=== PATIENT | male | born 1950 ===

== ENCOUNTER 2017-08-22 15:50 | Emergency (ER) | payer MEDICARE ==
[2017-08-22 16:31] LABS: #Eosinphils 0.1 thou/uL (0.0-0.7); #Lymphocytes 1.2 thou/uL (1.20-3.40); #Monocytes 0.2 thou/uL (0.11-0.59); #Neutrophils 1.2 thou/uL (1.40-6.50); %Basophils 0.1 % (0.0-1.0); %Eosinophils 4.3 % (0.0-10.0); %Lymphocytes 44.2 % (21.0-51.0); %Monocytes 6.5 % (0.0-10.0); %Neutrophils 44.8 % (42.0-75.0); Hemoglobin 6.3 g/dL (14.0-18.0); Mean Corpuscular HGB CONC 34.1 g/dL (32.0-36.0); Mean Corpuscular Hemoglobin 30.9 pg (27.0-31.0); Mean Corpuscular Volume 90.8 fL (78.0-98.0); Mean Platelet Volume 9.9 fL (7.4-10.4); Platelet Count 51 thou/uL (130-400); RBC Distribution Width 14.7 % (11.5-14.5); Red Blood Cell (RBC) Count 2.04 mill/uL (4.70-6.10); White Blood Cell (WBC) Count 2.6 thou/uL (4.8-10.8)
[2017-08-22 16:51] LABS: ALT (SGPT) 8 U/L (8-55); AST (SGOT) 12 U/L (5-34); Albumin 2.4 g/dL (3.4-4.8); Alkaline Phosphatase 50 U/L (40-150); Anion Gap 9 mmol/L (10-20); BUN (Urea Nitrogen) 8 mg/dL (8.4-25.7); Bilirubin, Total 0.6 mg/dL (0.2-1.2); Calc. Creatinine Clearance 0 mL/min (70-130); Carbon Dioxide 27 mmol/L (23-31); Chloride 104 mmol/L (98-107); Estimated GFR-MDRD Greater than 90; Globulin 4.1 g/dL (2.4-3.5); Glucose 92 mg/dL (80-115); Potassium 3.2 mmol/L (3.5-5.1); Protein, Total 6.5 g/dL (5.8-8.1); Sodium 137 mmol/L (136-145)
[2017-08-22 16:55] LABS: CKMB 0.6 ng/mL (0-6.6); Troponin I Less than 0.010 ng/mL (< 0.028)
--- NOTE | 2017-08-22 16:57 | RAD ---
SINGLE VIEW CHEST: Date: 08/22/17 COMPARISON: 03/24/17. HISTORY: Chest pain and difficulty breathing. FINDINGS: Single view of the chest shows an enlarged but stable cardiomediastinal silhouette. The patient is st atus post CABG. The MediPort is unchanged in position. There is a subtle vein-like opacity in the rig ht thorax which could represent a pleural effusion. IMPRESSION: Cardiomegaly and possible small right pleural effusion. POS: [facility]
[2017-08-22 17:08] LABS: Magnesium 1.8 mg/dL (1.6-2.6)
[2017-08-22] MEDS ORDERED: Furosemide 20 MG/2 ML VIAL ONE (17:46)
[2017-08-22 18:52] LABS: Bilirubin Negative (Negative); Blood, Urine Negative (Negative); Clarity CLEAR (Clear); Glucose, Urine (Dipstick) Negative (Negative); Leukocyte Negative (Negative); Nitrite Negative (Negative); Protein, Urine (Dipstick) Negative (Neg-Trace); Specific Gravity, Urine 1.009 (1.002-1.036)
== END 2017-08-22 19:16 | disposition short-term general hospital (02) ==
LOC: ERS 15:50
DX: I11.0 Hypertensive heart disease with heart failure (principal); I50.9 Heart failure, unspecified; D64.9 Anemia, unspecified; I48.91 Unspecified atrial fibrillation; K21.9 Gastro-esophageal reflux disease without esophagitis; E11.9 Type 2 diabetes mellitus without complications; E78.5 Hyperlipidemia, unspecified; F41.9 Anxiety disorder, unspecified; Z87.891 Personal history of nicotine dependence; Z79.899 Other long term (current) drug therapy
CPT/HCPCS: 36430; 71045; 80053; 81003; 82553; 83690; 83735; 83880; 84484; 85025; 85379; 86850; 86900; 86901; 86920; 93005; 94760; 96374; 99285; P9016; 36415; J1940

== ENCOUNTER 2017-12-01 16:47 | Emergency (ER) | payer MEDICARE ==
[2017-12-01 17:10] LABS: #Eosinphils 0.1 thou/uL (0.0-0.7); #Lymphocytes 1.1 thou/uL (1.20-3.40); #Monocytes 0.2 thou/uL (0.11-0.59); #Neutrophils 4.1 thou/uL (1.40-6.50); %Basophils 0.1 % (0.0-1.0); %Eosinophils 2.4 % (0.0-10.0); %Monocytes 4.2 % (0.0-10.0); %Neutrophils 73.4 % (42.0-75.0); Hemoglobin 8.4 g/dL (14.0-18.0); Mean Corpuscular HGB CONC 32.9 g/dL (32.0-36.0); Mean Corpuscular Hemoglobin 31.9 pg (27.0-31.0); Mean Corpuscular Volume 96.9 fL (78.0-98.0); Mean Platelet Volume 11.1 fL (7.4-10.4); Platelet Count 52 thou/uL (130-400); RBC Distribution Width 17.2 % (11.5-14.5); Red Blood Cell (RBC) Count 2.63 mill/uL (4.70-6.10); White Blood Cell (WBC) Count 5.6 thou/uL (4.8-10.8)
--- NOTE | 2017-12-01 17:19 | RAD ---
1 VIEW CHEST: Date: 12/01/17 COMPARISON: 08/22/17. HISTORY: Altered mental status. FINDINGS: There are sternotomy wires. Stable right-sided MediPort catheter. There are pleural and parenchymal c hanges in the lung bases. Lung volumes are diminished. There is no pneumothorax. Stable cardiac silho uette. Stable stent projecting over the medial left hemithorax. IMPRESSION: Pleural and parenchymal changes, cardiomegaly. Correlate for congestive heart failure. POS: [facility]
[2017-12-01 17:32] LABS: ALT (SGPT) Less than 7 U/L (8-55); AST (SGOT) 9 U/L (5-34); Albumin 2.2 g/dL (3.4-4.8); Alkaline Phosphatase 42 U/L (40-150); Anion Gap 10 mmol/L (10-20); BUN (Urea Nitrogen) 25 mg/dL (8.4-25.7); Bilirubin, Total 0.4 mg/dL (0.2-1.2); CK (CPK) Less than 9 U/L (30-200); Calc. Creatinine Clearance 0 mL/min (70-130); Calcium 8.1 mg/dL (7.8-10.44); Carbon Dioxide 28 mmol/L (23-31); Chloride 108 mmol/L (98-107); Estimated GFR-MDRD 56; Globulin 3.3 g/dL (2.4-3.5); Glucose 102 mg/dL (80-115); Protein, Total 5.5 g/dL (5.8-8.1); Sodium 142 mmol/L (136-145)
[2017-12-01 17:33] LABS: Digoxin 1.45 ng/mL (0.8-2.0)
[2017-12-01 17:37] LABS: CKMB 0.4 ng/mL (0-6.6); Troponin I Less than 0.010 ng/mL (< 0.028)
--- NOTE | 2017-12-01 17:39 | CT ---
HEAD CT WITHOUT CONTRAST: Date: 12/01/17 HISTORY: Altered mental status. COMPARISON: None. FINDINGS: No parenchymal hemorrhage. No extra-axial hematoma. No midline shift. Basilar cisterns are patent. Br ain volume, age-appropriate. Cortical álvarez-white matter differentiation preserved. Ventricles and sul ci are patent and symmetric. Calvarium is intact. Adequate aeration of the sinuses and mastoid air ce lls. IMPRESSION: No acute intracranial process. POS: [facility]
[2017-12-01] MEDS ORDERED: Furosemide 40 MG/4 ML VIAL ONE (18:14)
[2017-12-01 18:46] LABS: Bilirubin Moderate (Negative); Blood, Urine Negative (Negative); Clarity TURBID (Clear); Glucose, Urine (Dipstick) Negative (Negative); Leukocyte Negative (Negative); Nitrite Negative (Negative); Protein, Urine (Dipstick) 30 mg/dL (Neg-Trace); Specific Gravity, Urine 1.021 (1.002-1.036); Urobilinogen 0.2 mg/dL (0.2-1.0)
[2017-12-01 18:48] LABS: Bacteria/HPF None Seen HPF (None Seen); Pathc Cast-AUWi Flag 4.07 (0-2.49)
[2017-12-01 19:00] LABS: Crystals/HPF 3+ AMORPH URATES HPF (Negative); Hyaline Casts/LPF 0-3 HYALINE CAST LPF (0-3 Hyaline); RBC/HPF 0-3 HPF (0-3); Renal Epithelial 0-3 HPF (0-3); Squamous Epithelial 0-3 HPF (0-3); Transitional Epithelial 0-3 HPF (0-3); WBC/HPF 0-3 HPF (0-3)
[2017-12-01] MEDS ORDERED: Atropine Sulfate 1 mg/10 ml Syringe ONE (20:53)
--- NOTE | 2017-12-04 18:15 | EKG ---
Test Reason : ERS.LKG Blood Pressure : / mmHG Vent. Rate : 050 BPM Atrial Rate : 034 BPM P-R Int : 000 ms QRS Dur : 090 ms QT Int : 374 ms P-R-T Axes : 000 -21 186 degrees QTc Int : 340 ms Atrial fibrillation with slow ventricular response Low voltage QRS Cannot rule out Anterior infarct , age undetermined Abnormal ECG Confirmed by VIKA CAMPOS, BRENDON Caruso ([id number]), news videotape editor ELIZABETH PANG ([id number]) on 12/04/2017 6:15:02 PM Referred By: Confirmed By:BRENDON SANDY MD
== END 2017-12-01 20:37 | disposition home or self-care (01) ==
LOC: ERS 16:47
DX: I11.0 Hypertensive heart disease with heart failure (principal); I50.9 Heart failure, unspecified; I48.91 Unspecified atrial fibrillation; K21.9 Gastro-esophageal reflux disease without esophagitis; E11.9 Type 2 diabetes mellitus without complications; E78.5 Hyperlipidemia, unspecified; F41.9 Anxiety disorder, unspecified
CPT/HCPCS: 36415; 51701; 70450; 71045; 80053; 80162; 81003; 81015; 82550; 82553; 83605; 83880; 84484; 87040; 93005; 96361; 96374; 96375; J0461; J1940

== ENCOUNTER → 2017-12-09 09:20 | Emergency (ER) | payer MEDICARE ==
--- NOTE | 2017-12-09 10:21 | RAD ---
PORTABLE CHEST: History: Dyspnea. Comparison: 12-01-17 FINDINGS: Right sided Mediport catheter is unchanged in position. Heart size is enlarged. Pulmonary vessels are engorged, somewhat increased parahilar markings, but asymmetric changes in the right parahilar and l ower lobe region with bilateral effusions, right larger than left. IMPRESSION: Cardiomegaly with findings that would suggest probably pulmonary edema change although asymmetry on t he right side could be related to an underlying pneumonia. POS: [facility]
[2017-12-09 10:28] LABS: #Eosinphils 0.2 thou/uL (0.0-0.7); #Lymphocytes 0.7 thou/uL (1.20-3.40); #Monocytes 0.4 thou/uL (0.11-0.59); %Eosinophils 2.6 % (0.0-10.0); %Lymphocytes 8.9 % (21.0-51.0); %Monocytes 4.4 % (0.0-10.0); %Neutrophils 84.1 % (42.0-75.0); Hemoglobin 9.2 g/dL (14.0-18.0); Mean Corpuscular HGB CONC 31.9 g/dL (32.0-36.0); Mean Corpuscular Volume 94.3 fL (78.0-98.0); Mean Platelet Volume 10.7 fL (7.4-10.4); Platelet Count 59 thou/uL (130-400); RBC Distribution Width 17.9 % (11.5-14.5); Red Blood Cell (RBC) Count 3.07 mill/uL (4.70-6.10); White Blood Cell (WBC) Count 8.3 thou/uL (4.8-10.8)
[2017-12-09 10:32] LABS: INR-International Normal Ratio 1.4; Prothrombin Time 17.3 SEC (12.0-14.7)
[2017-12-09 10:41] LABS: ALT (SGPT) Less than 7 U/L (8-55); AST (SGOT) 8 U/L (5-34); Albumin 2.2 g/dL (3.4-4.8); Alkaline Phosphatase 44 U/L (40-150); Anion Gap 10 mmol/L (10-20); BUN (Urea Nitrogen) 23 mg/dL (8.4-25.7); Bilirubin, Total 0.5 mg/dL (0.2-1.2); Calc. Creatinine Clearance 0 mL/min (70-130); Calcium 8.4 mg/dL (7.8-10.44); Carbon Dioxide 29 mmol/L (23-31); Chloride 106 mmol/L (98-107); Estimated GFR-MDRD 52; Globulin 3.6 g/dL (2.4-3.5); Glucose 113 mg/dL (80-115); Potassium 3.5 mmol/L (3.5-5.1); Protein, Total 5.8 g/dL (5.8-8.1); Sodium 141 mmol/L (136-145)
[2017-12-09 10:46] LABS: CKMB 0.5 ng/mL (0-6.6); Troponin I Less than 0.010 ng/mL (< 0.028)
[2017-12-09 11:36] LABS: Digoxin 0.75 ng/mL (0.8-2.0)
--- NOTE | 2017-12-09 12:40 | CT ---
CT OF BRAIN PERFORMED WITHOUT CONTRAST ENHANCEMENT: History: Altered mental status. Confusion. Weakness. Comparison: 12-01-17 FINDINGS: There is some mild ventricular and sulcal prominence, fairly age appropriate. There are no signs of i ntracerebral hemorrhage or extraaxial fluid collections. The mastoid air cells and visualized sinuses are clear. IMPRESSION: No acute intracranial abnormalities. POS: [facility]
[2017-12-09 13:13] LABS: Troponin I 0.011 ng/mL (< 0.028)
== END | disposition home or self-care (01) ==
LOC: ERS 09:20
DX: I46.9 Cardiac arrest, cause unspecified (principal); R41.82 Altered mental status, unspecified; I42.9 Cardiomyopathy, unspecified; I48.91 Unspecified atrial fibrillation; K21.9 Gastro-esophageal reflux disease without esophagitis; E78.5 Hyperlipidemia, unspecified; I10 Essential (primary) hypertension; F41.9 Anxiety disorder, unspecified; Z87.891 Personal history of nicotine dependence; Z79.82 Long term (current) use of aspirin; Z79.899 Other long term (current) drug therapy
CPT/HCPCS: 36415; 70450; 71045; 80162; 82553; 83605; 83735; 83880; 84484; 85610; 85730; 93005